=== PATIENT | female | born 1985 | race Caucasian/White ===

== ENCOUNTER 2017-08-08 14:08 | Inpatient (IN) | payer OTHER ==
[2017-08-08] MEDS ORDERED: Sodium Chloride 0.9% 1,000 ML IV ONE (15:47)
[2017-08-08] MEDS ORDERED: Sodium Chloride 0.9% 1,000 ML ONE (16:04)
[2017-08-08 16:19] LABS: BASO # 0.1 K/uL (0.0-0.2); BASO % 0.7 % (0.0-2.0); EOS # 0.1 K/uL (0.0-0.7); EOS % 0.6 % (0.0-4.0); HEMOGLOBIN 12.9 g/dL (11.0-16.0); LYMPH # 2.1 K/uL (1.0-4.3); LYMPH % 19.7 % (20.0-40.0); MEAN CELL VOLUME 84.4 fL (81.0-99.0); MEAN CORPUSCULAR HEMOGLOBIN 27.8 pg (27.0-31.0); MEAN CORPUSCULAR HGB CONC 32.9 g/dL (33.0-37.0); MEAN PLATELET VOLUME 8.6 fL (7.2-11.7); MONO # 0.6 K/uL (0.0-0.8); MONO % 5.5 % (0.0-10.0); NEUT # 7.8 K/uL (1.8-7.0); NEUT % 73.5 % (50.0-75.0); RBC 4.63 Mil/uL (3.80-5.20); RED CELL DISTRIBUTION WIDTH 13.5 % (11.5-14.5); WHITE BLOOD COUNT 10.6 K/uL (4.8-10.8)
--- NOTE | 2017-08-08 16:27 | C.PDOC ---
History Of Present Illness 32 y/o female c/o pain and mass to buttock x 6 days. Pt notes she was evaluated by Dr Rivera and instructed to follow up ED . Pt denies having similar abscess in the past, denies drainage, fever, or any other complaints at this time. Time Seen by Provider: 08/08/17 15:45 Chief Complaint (Nursing): Medical Clearance History Per: Patient History/Exam Limitations: no limitations Onset/Duration Of Symptoms: Days (6) Current Symptoms Are (Timing): Still Present Reports Recently: Treated By A Physician Recent travel outside of the [place]: No Additional History Per: Patient Past Medical History Reviewed: Historical Data, Nursing Documentation, Vital Signs Vital Signs: Last Vital Signs Temp 98.3 F 08/08/17 16:39 Pulse 90 08/08/17 16:39 Resp 16 08/08/17 16:39 BP 126/84 08/08/17 16:39 Pulse Ox 100 08/08/17 16:39 Family History: States: Unknown Family Hx - Social History Hx Alcohol Use: No Hx Substance Use: No - Immunization History Hx Tetanus Toxoid Vaccination: No Hx Influenza Vaccination: No Hx Pneumococcal Vaccination: No Review Of Systems Except As Marked, All Systems Reviewed And Found Negative. Constitutional: Negative for: Fever, Chills Cardiovascular: Negative for: Chest Pain Respiratory: Negative for: Shortness of Breath Gastrointestinal: Positive for: Rectal Pain (perirectal abscess). Negative for : Nausea, Vomiting, Abdominal Pain Physical Exam - Physical Exam Appears: Non-toxic, No Acute Distress Skin: Warm, Dry Head: Atraumatic, Normacephalic Eye(s): bilateral: Normal Inspection, EOMI Nose: Normal Oral Mucosa: Moist Neck: Normal ROM, Supple Chest: Symmetrical Cardiovascular: Rhythm Regular Respiratory: Normal Breath Sounds, No Accessory Muscle Use Gastrointestinal/Abdominal: Soft, No Tenderness Rectal: Tenderness (2cm area of tenderness, erythema, and central fluctuance to the left inferior buttock) Extremity: Normal ROM Neurological/Psych: Oriented x3, Normal Speech ED Course And Treatment - Laboratory Results Result Diagrams: 08/08/17 16:17 08/08/17 16:17 O2 Sat by Pulse Oximetry: 100 (RA) Pulse Ox Interpretation: Normal Progress Note: Blood work, UA ordered and reviewed. Patient was given IV fluids. case discussed with DR Rivera, agreed upon admission. Disposition - Disposition Disposition: HOSPITALIZED Disposition Time: 16:30 Condition: STABLE - Clinical Impression Clinical Impression: Gluteal abscess - PA / ACADEMIC SUPPORT DIRECTOR / Resident Statement MD/DO has reviewed & agrees with the documentation as recorded. - Scribe Statement The provider has reviewed the documentation as recorded by the Katelinibbrock Sharma All medical record entries made by the Jeremias were at my direction and personally dictated by me. I have reviewed the chart and agree that the record accurately reflects my personal performance of the history, physical exam, medical decision making, and the department course for this patient. I have also personally directed, reviewed, and agree with the discharge instructions and disposition.
[2017-08-08 16:31] LABS: ALB/GLOB RATIO 1.5 (1.0-2.1); ALBUMIN 4.7 g/dL (3.5-5.0); ALT/SGPT 48 U/L (9-52); AST/SGOT 22 U/L (14-36); BLOOD UREA NITROGEN 10 mg/dL (7-17); CALCIUM 8.9 mg/dl (8.6-10.4); GFR AFRICAN-AMERICAN > 60; GFR NON-AFRICAN AMERICAN > 60; PROTHROMBIN TIME 11.4 SECONDS (9.7-12.2)
[2017-08-08 16:31] LABS: HCG,QUALITATIVE URINE NEGATIVE (NEGATIVE)
[2017-08-08 16:37] LABS: SQUAMOUS EPITHIAL 3 /hpf (0-5); URINE BACTERIA OCC (<OCC); URINE BILIRUBIN NEGATIVE (NEGATIVE); URINE BLOOD 1+ (NEGATIVE); URINE CLARITY Clear (Clear); URINE COLOR Yellow (YELLOW); URINE GLUCOSE (UA) NORMAL (Normal); URINE LEUKOCYTE ESTERASE 1+ Leu/uL (Negative); URINE NITRATE NEGATIVE (NEGATIVE); URINE PROTEIN NEGATIVE (NEGATIVE); URINE UROBILINOGEN NORMAL mg/dL (0.2-1.0)
[2017-08-08] MEDS ORDERED: Midazolam 2 MG/2 ML VIAL ONE (17:11)
[2017-08-08] MEDS ORDERED: Propofol 10 mg/ml Inj (20 ML) ONE ×2 (17:12)
[2017-08-08] MEDS ORDERED: Lactated Ringer's 1,000 ML IV ONE (17:15)
[2017-08-08] MEDS ORDERED: Lidocaine Hydrochloride 5 ML INJ ONE (17:17)
[2017-08-08] MEDS ORDERED: ceFAZolin IV 1 gm in Dextrose 1 GM/50 ML BAG IVPB ONE (17:20)
[2017-08-08] MEDS ORDERED: Bupivacaine HCl 0.25% PF (10 ml) Inj ONE (17:20)
[2017-08-08] MEDS ORDERED: HYDROmorphone 0.5 mg/0.5 ml ISec IVP PRN (17:51)
[2017-08-08] MEDS ORDERED: Enoxaparin 30 mg Syringe SC SCH (22:00)
[2017-08-08] MEDS: Dextrose 5%/0.45% NS 1,000 ML IV SCH (22:06)
--- NOTE | 2017-08-08 23:19 | OP ---
PROCEDURE DATE: 08/08/2017 PREOPERATIVE DIAGNOSIS: Rectal abscess. 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 PROCEDURE PERFORMED: Incision and drainage of complex rectal and pelvic abscess with fistulotomy. SURGEON: Montana Rivera MD TYPE OF ANESTHESIA: General. ESTIMATED BLOOD LOSS: 75 mL. POSTOPERATIVE CONDITION: Stable. INDICATIONS FOR SURGERY: This is a 32-year-old female who presents with a history of rectal abscess x1 week. It is being increasing in size, becoming more painful. She is referred by a primary care doctor to me today and was admitted to the Emergency Room for urgent drainage. GROSS FINDINGS: There was a rectal abscess with a 4 o'clock level, approximately 5 cm from the anus. Upon draining the abscess, a probe was easily passed into the posterior midline of the anal canal consistent with Goodsall's rule. There were no other abnormal findings. DESCRIPTION OF PROCEDURE: The patient was taken to the operating room, general sedation was administered. The patient was placed in lithotomy position. The rectal area was prepped and draped. The rectal abscess was unroofed using the Bovie and pus was drained and cultured. Bleeding was controlled using the Bovie. A rectal probe was passed easily into the posterior midline and the anus. The overlying tissue was divided using the Bovie. There was vigorous bleeding noted and controlled using Bovie, and exposed redundant blood vessel was repaired. Wound was irrigated with copious amounts of saline solution. Partial tissue transfer closure was performed and the central portion was packed open with wet saline bolus. The patient tolerated the procedure well. Returned to recovery room in stable condition. Montana Rivera MD
[2017-08-09] MEDS: ceFAZolin IV 1 gm in Dextrose 1 GM/50 ML BAG IVPB SCH ×3 (01:36→17:32)
--- NOTE | 2017-08-09 01:46 | CP.PCM.CON ---
<Samara SheikhBernabe - Last Filed: 08/09/17 01:40> History of Present Illness - History of Present Illness History of Present Illness: CC: rectal abscess Medicine Consult Note HPI: Patient is a 32 y/o F with no significant pmhx who had been having L buttock pain for about 1 week and noticed she had an abscess which she said started small. Patient was having increasing pain and went to PMD: Dr. Chencho Sharma who told her to go to the ED. Patient had also told PMD that she was having some burning and increased frequency with urination for about 2 weeks. Patient had an incision and drainage of complex rectal and pelvic abscess with fistulotomy by Dr. Rivera performed today. Patient seen after the procedure and was very tired from the anesthesia. Patient said her pain was low, about 2/ 10. Patient said she had no chest pain, nausea, vomiting, or abdominal pain. When asked about her urinary symptoms patient said she did not notice any blood or change in color of the urine. PMD: Dr. Chencho Sharma PMHx: none Psurg: none Famhx: mom- high bp, DM, CAD father: HTN SocialHx: denies tobacco, alcohol, drugs Home meds: none Review of Systems - Constitutional Constitutional: Fatigue. absent: Chills, Fever - Cardiovascular Cardiovascular: absent: Chest Pain, Dyspnea, Edema, Palpitations, Pedal Edema - Respiratory Respiratory: absent: Cough, Dyspnea, Wheezing, Stridor - Gastrointestinal Gastrointestinal: absent: Abdominal Pain, Constipation, Diarrhea, Nausea, Vomiting - Genitourinary Genitourinary: Dysuria, Voiding Freq/Small Amts Additional comments: left buttock abscess and pain - Musculoskeletal Musculoskeletal: absent: Numbness, Tingling - Integumentary Additional comments: left buttock abscess - Psychiatric Psychiatric: absent: Confusion - Hematologic/Lymphatic Hematologic: absent: Easy Bleeding, Easy Bruising Past Patient History - Past Medical History & Family History Past Medical History?: No - Past Social History Smoking Status: Never Smoked - MUSCULOSKELETAL/RHEUMATOLOGICAL Hx Falls: No - PSYCHIATRIC Hx Substance Use: No - SURGICAL HISTORY Hx Surgeries: No - ANESTHESIA Hx Anesthesia: No Meds Allergies/Adverse Reactions: Allergies Allergy/AdvReac Type Severity Reaction Status Date / Time No Known Allergies Allergy Verified 08/08/17 14:44 - Medications Medications: Current Medications Docusate Sodium (Colace) 100 mg PO BID [facility] Last Admin: 08/08/17 21:57 Dose: 100 mg Enoxaparin Sodium (Lovenox) 30 mg SC 1000,2200 [facility] Famotidine (Pepcid) 20 mg IVP DAILY [facility] Sodium Chloride (Sodium Chloride 0.9%) 1,000 mls @ 100 mls/hr IV .Q10H ONE Stop: 08/09/17 01:46 Last Admin: 08/08/17 16:16 Dose: 100 mls/hr Dextrose/Sodium Chloride (Dextrose 5%/0.45% Ns 1000 Ml) 1,000 mls @ 80 mls/hr IV .[id number] [facility] Last Admin: 08/08/17 22:06 Dose: 80 mls/hr Cefazolin Sodium/Dextrose (Ancef Iv 1 Gm Duplex) 1 gm in 50 mls @ 100 mls/hr IVPB Q8H [facility] Ketorolac Tromethamine (Toradol) 30 mg IV Q6 PRN PRN Reason: pain 8-10 Stop: 08/13/17 18:01 Meperidine HCl (Demerol) 12.5 mg IVP Q5M PRN PRN Reason: Shivering/Rigor Last Admin: 08/08/17 18:18 Dose: 12.5 mg Ondansetron HCl (Zofran Inj) 4 mg IVP ONCE PRN PRN Reason: Nausea/Vomiting Last Admin: 08/08/17 22:00 Dose: 4 mg Oxycodone/Acetaminophen (Percocet 5/325 Mg Tab) 2 tab PO Q4 PRN PRN Reason: pain Stop: 08/11/17 18:01 Pneumococcal Polyvalent Vaccine (Pneumovax 23 Vaccine) 0.5 ml IM .ONCE ONE Stop: 08/10/17 10:01 Physical Exam - Constitutional Appears: Non-toxic, No Acute Distress - Head Exam Head Exam: ATRAUMATIC, NORMAL INSPECTION, NORMOCEPHALIC - Eye Exam Eye Exam: EOMI, Normal appearance - ENT Exam ENT Exam: Mucous Membranes Moist - Respiratory Exam Respiratory Exam: Clear to Auscultation Bilateral, NORMAL BREATHING PATTERN. absent: Rales, Rhonchi, Wheezes, Respiratory Distress, Stridor - Cardiovascular Exam Cardiovascular Exam: REGULAR RHYTHM, RRR, +S1, +S2 - GI/Abdominal Exam GI & Abdominal Exam: Normal Bowel Sounds, Soft. absent: Tenderness - Extremities Exam Extremities exam: Positive for: normal inspection. Negative for: tenderness - Neurological Exam Neurological exam: Alert, Oriented x3 - Psychiatric Exam Psychiatric exam: Normal Affect, Normal Mood - Skin Skin Exam: Intact, Normal Color, Warm Additional comments: buttock dressing c/d/i Results - Vital Signs Recent Vital Signs: Last Vital Signs Temp 97 F L 08/08/17 20:30 Pulse 84 08/08/17 20:30 Resp 16 08/08/17 20:30 BP 111/75 08/08/17 20:30 Pulse Ox 100 08/08/17 20:30 - Labs Result Diagrams: 08/08/17 16:17 08/08/17 16:17 Labs: Laboratory Results - last 24 hr 08/08/17 08/08/17 08/08/17 16:17 16:17 16:17 WBC 10.6 RBC 4.63 Hgb 12.9 Hct 39.1 MCV 84.4 MCH 27.8 MCHC 32.9 L RDW 13.5 Plt Count 334 MPV 8.6 Neut % (Auto) 73.5 Lymph % (Auto) 19.7 L Frontier % (Auto) 5.5 Eos % (Auto) 0.6 Baso % (Auto) 0.7 Neut # 7.8 H Lymph # 2.1 Frontier # 0.6 Eos # 0.1 Baso # 0.1 PT 11.4 INR 1.0 APTT 33 Sodium 134 Potassium 3.6 Chloride 98 Carbon Dioxide 20 L Anion Gap 20 BUN 10 Creatinine 0.5 L Est GFR ( Amer) > 60 Est GFR (Non-Af Amer) > 60 Random Glucose 85 Calcium 8.9 Total Bilirubin 1.0 AST 22 ALT 48 Alkaline Phosphatase 65 Total Protein 7.8 Albumin 4.7 Globulin 3.1 Albumin/Globulin Ratio 1.5 Urine Color Urine Clarity Urine pH Ur Specific [place] Urine Protein Urine Glucose (UA) Urine Ketones Urine Blood Urine Nitrate Urine Bilirubin Urine Urobilinogen Ur Leukocyte Esterase Urine WBC (Auto) Urine RBC (Auto) Ur Squamous Epith Cells Urine Bacteria Urine HCG, Qual 08/08/17 16:25 WBC RBC Hgb Hct MCV MCH MCHC RDW Plt Count MPV Neut % (Auto) Lymph % (Auto) Frontier % (Auto) Eos % (Auto) Baso % (Auto) Neut # Lymph # Frontier # Eos # Baso # PT INR APTT Sodium Potassium Chloride Carbon Dioxide Anion Gap BUN Creatinine Est GFR ( Amer) Est GFR (Non-Af Amer) Random Glucose Calcium Total Bilirubin AST ALT Alkaline Phosphatase Total Protein Albumin Globulin Albumin/Globulin Ratio Urine Color Yellow Urine Clarity Clear Urine pH 5.0 Ur Specific [place] 1.016 Urine Protein Negative Urine Glucose (UA) Normal Urine Ketones 1+ H Urine Blood 1+ H Urine Nitrate Negative Urine Bilirubin Negative Urine Urobilinogen Normal Ur Leukocyte Esterase 1+ H Urine WBC (Auto) 13 H Urine RBC (Auto) 8 H Ur Squamous Epith Cells 3 Urine Bacteria Occ H Urine HCG, Qual Negative Assessment & Plan - Assessment and Plan (Free Text) Assessment: I&D of complex rectal and pelvic abscess with fistulotomy, POD#0 Cefazolin 1 gm q8h Toradol prn Oxycodone/ acetaminophen prn NS @ 100cc/hr continue recommendations as per surgeon, Dr. Rivera R/O UTI repeat UA and Urine culture Prophylaxis DVT: Lovenox 30mg sc bid GI: Pepcid 20mg ivp daily Zofran prn <Leo Francisco P - Last Filed: 08/12/17 07:08> Results - Vital Signs Recent Vital Signs: Last Vital Signs Temp 98.9 F 08/11/17 15:00 Pulse 95 H 08/11/17 15:00 Resp 20 08/11/17 15:00 BP 104/71 08/11/17 15:00 Pulse Ox 96 08/11/17 15:00 - Labs Result Diagrams: 08/10/17 13:08 08/09/17 06:55 Attending/Attestation - Attestation I have personally seen and examined this patient.: Yes I have fully participated in the care of the patient.: Yes I have reviewed all pertinent clinical information: Yes Notes (Text): Evaluated patient for request of medicine consult patient admitted under surgery , with presentation of gluteal swelling on the left side, started as pimple, then in few days started to drain with swelling. Patient was seen post op, hence pre-op finding were not known. As per her 1 st episode and not other pmh, wbc in urine noticed but no significant urinary symptoms. Upon Exam rest fine in the perineum she had incision in the left gluteal/perinal area which was packed with gauze, no surrounding edema/induration.
[2017-08-09] MEDS: Dextrose 5%/0.45% NS 1,000 ML IV SCH ×2 (06:30→17:32)
[2017-08-09 07:22] LABS: BASO % 0.5 % (0.0-2.0); EOS # 0.1 K/uL (0.0-0.7); EOS % 1.3 % (0.0-4.0); HEMOGLOBIN 11.6 g/dL (11.0-16.0); MEAN CELL VOLUME 84.1 fL (81.0-99.0); MEAN CORPUSCULAR HGB CONC 33.3 g/dL (33.0-37.0); MEAN PLATELET VOLUME 8.8 fL (7.2-11.7); MONO # 0.8 K/uL (0.0-0.8); MONO % 10.4 % (0.0-10.0); NEUT # 4.5 K/uL (1.8-7.0); NEUT % 60.8 % (50.0-75.0); RBC 4.13 Mil/uL (3.80-5.20); RED CELL DISTRIBUTION WIDTH 13.1 % (11.5-14.5); WHITE BLOOD COUNT 7.4 K/uL (4.8-10.8)
[2017-08-09 07:34] LABS: BLOOD UREA NITROGEN 8 mg/dL (7-17); GFR AFRICAN-AMERICAN > 60; GFR NON-AFRICAN AMERICAN > 60
--- NOTE | 2017-08-09 08:38 | CP.PCM.PN ---
<YasmineChikis - Last Filed: 08/09/17 19:14> Subjective - Date & Time of Evaluation Date of Evaluation: 08/09/17 Time of Evaluation: 08:35 - Subjective Subjective: Progress note for Dr. Garza Patient seen and examined at bedside. Patient tolerating pain well. Patient denies Fever, chills, nausea, vomiting, abdominal pain. Patient notes some tenderness at surgical site. Dressings to be changed by nursing staff. No acute events overnight. Patient admits to burning sensation with increased frequency of urination. Patient states she's had it in the past before and it went away. Patient was asked about her bathroom hygiene technique and was instructed to wipe from front to back and with sexual activity, void immediately afterwards). Patient told she will have a culture for urine, antibiotics for urine and medication for the burning sensation which has the side effect of color change of urine ( to be given for two days). Objective - Vital Signs/Intake and Output Vital Signs (last 24 hours): Temp Pulse Resp BP Pulse Ox 97.1 F L 86 20 118/75 96 08/09/17 07:41 08/09/17 07:41 08/09/17 07:41 08/09/17 07:41 08/09/17 07:41 Intake and Output: 08/09/17 08/09/17 06:59 18:59 Intake Total 640 Output Total 100 Balance 540 - Medications Medications: Current Medications Docusate Sodium (Colace) 100 mg PO BID [facility] Last Admin: 08/08/17 21:57 Dose: 100 mg Enoxaparin Sodium (Lovenox) 30 mg SC 1000,2200 [facility] Famotidine (Pepcid) 20 mg IVP DAILY [facility] Dextrose/Sodium Chloride (Dextrose 5%/0.45% Ns 1000 Ml) 1,000 mls @ 80 mls/hr IV .[id number] [facility] Last Admin: 08/09/17 06:30 Dose: Not Given Cefazolin Sodium/Dextrose (Ancef Iv 1 Gm Duplex) 1 gm in 50 mls @ 100 mls/hr IVPB Q8H [facility] Last Admin: 08/09/17 08:34 Dose: 100 mls/hr Ketorolac Tromethamine (Toradol) 30 mg IV Q6 PRN PRN Reason: pain 8-10 Stop: 12/03/17 18:01 Ondansetron HCl (Zofran Inj) 4 mg IVP ONCE PRN PRN Reason: Nausea/Vomiting Last Admin: 08/08/17 22:00 Dose: 4 mg Oxycodone/Acetaminophen (Percocet 5/325 Mg Tab) 2 tab PO Q4 PRN PRN Reason: pain Stop: 08/11/17 18:01 Pneumococcal Polyvalent Vaccine (Pneumovax 23 Vaccine) 0.5 ml IM .ONCE ONE Stop: 08/10/17 10:01 - Labs Labs: 08/09/17 06:55 08/09/17 06:55 PT 11.4 SECONDS (9.7-12.2) 08/08/17 16: INR 1.0 08/08/17 16:17 APTT 33 SECONDS (21-34) 08/08/17 16:17 - Constitutional Appears: Non-toxic - Head Exam Head Exam: NORMAL INSPECTION - Eye Exam Eye Exam: EOMI, Normal appearance - ENT Exam ENT Exam: Mucous Membranes Moist - Neck Exam Neck Exam: Full ROM - Respiratory Exam Respiratory Exam: Clear to Ausculation Bilateral, NORMAL BREATHING PATTERN. absent: Accessory Muscle Use - Cardiovascular Exam Cardiovascular Exam: REGULAR RHYTHM, +S1, +S2 - GI/Abdominal Exam GI & Abdominal Exam: Soft. absent: Tenderness - Extremities Exam Extremities Exam: Full ROM. absent: Pedal Edema - Neurological Exam Neurological Exam: Alert, Awake - Psychiatric Exam Psychiatric exam: Normal Mood - Skin Skin Exam: Dry, Normal Color Additional comments: dressings c/d/i and left gluteal region no signs of erythema, induration, drainage Assessment and Plan - Assessment and Plan (Free Text) Assessment: 32 F with rectal and pelvic abscess with fistula s/p incision and drainage with fistulotomy POD#1 Rectal and pelvic abscess with fistula s/p incision and drainage with fistulotomy POD#1 Diet: NPO cefazolin 1gm D5W f/u wound culture UTI 08/08 UA positive proper bathroom hygiene technique instructed (wipe from front to back and with sexual activity, void immediately afterwards) f/u urine culture 08/09 250mg BID cipro for 7 days Pyridium 200mg BID for 2 days for symptomatic treatment, patient warned of urine color change, which is normal for this medication f/u CBC Prophylaxis Lovenox 30mg SC @ 10:00 and 22:00 Pepcid 20 mg IVP QD Pain: Toradol 30mg IV Q6H PRN Colace 100mg POBID Nausea: Zofran IV fluids: D5W 1/2 NS @80cc/hr discussed with Dr. Kayla Underwood DO PGY1 <Giovani Garza H - Last Filed: 08/10/17 07:45> Objective - Vital Signs/Intake and Output Vital Signs (last 24 hours): Temp Pulse Resp BP Pulse Ox 98.4 F 71 20 101/60 97 08/09/17 23:49 08/09/17 23:49 08/09/17 23:49 08/09/17 23:49 08/09/17 23:49 Intake and Output: 08/10/17 08/10/17 06:59 18:59 Intake Total 640 Balance 640 - Medications Medications: Current Medications Ciprofloxacin (Cipro) 250 mg PO BID [facility] Stop: 08/16/17 23:59 Last Admin: 08/09/17 17:33 Dose: 250 mg Docusate Sodium (Colace) 100 mg PO BID [facility] Last Admin: 08/09/17 17:33 Dose: 100 mg Enoxaparin Sodium (Lovenox) 30 mg SC 1000,2200 [facility] Famotidine (Pepcid) 20 mg IVP DAILY [facility] Last Admin: 08/09/17 09:29 Dose: 20 mg Dextrose/Sodium Chloride (Dextrose 5%/0.45% Ns 1000 Ml) 1,000 mls @ 80 mls/hr IV .[id number] [facility] Last Admin: 08/09/17 17:32 Dose: 80 mls/hr Cefazolin Sodium/Dextrose (Ancef Iv 1 Gm Duplex) 1 gm in 50 mls @ 100 mls/hr IVPB Q8H [facility] Last Admin: 08/10/17 00:38 Dose: 100 mls/hr Ketorolac Tromethamine (Toradol) 30 mg IV Q6 PRN PRN Reason: pain 8-10 Stop: 08/13/17 18:01 Ondansetron HCl (Zofran Inj) 4 mg IVP ONCE PRN PRN Reason: Nausea/Vomiting Last Admin: 08/08/17 22:00 Dose: 4 mg Oxycodone/Acetaminophen (Percocet 5/325 Mg Tab) 2 tab PO Q4 PRN PRN Reason: pain Stop: 08/11/17 18:01 Last Admin: 08/09/17 22:43 Dose: 2 tab Phenazopyridine HCl (Pyridium) 200 mg PO BID BILL Stop: 08/10/17 18:01 Last Admin: 08/09/17 18:30 Dose: 200 mg Pneumococcal Polyvalent Vaccine (Pneumovax 23 Vaccine) 0.5 ml IM .ONCE ONE Stop: 08/10/17 10:01 - Labs Labs: 08/09/17 06:55 08/09/17 06:55 PT 11.4 SECONDS (9.7-12.2) 08/08/17 16:17 INR 1.0 08/08/17 16:17 APTT 33 SECONDS (21-34) 08/08/17 16:17 Attending/Attestation - Attestation I have personally seen and examined this patient.: Yes I have fully participated in the care of the patient.: Yes I have reviewed all pertinent clinical information, including history, physical exam and plan: Yes Notes (Text): Medical Consult: Patient was seen and examined by me as well. Agree with the above note by the resident. Cipro has been started however we will repeat the UA and if the repeat is ok then probably will stop the Cipro. The patient was not in any acute distress when we came and examined her. She reported the pain was controlled with the percocet and toradol regimen that she is on. Denied fever or chills when we saw her. She had already been to the operating room. According to the surgical report, there was found a complex rectal and pelvic abscess with fistulotomy. Giovani Garza
[2017-08-09] MEDS ORDERED: Enoxaparin 30 mg Syringe SC SCH (10:00)
[2017-08-09] MEDS ORDERED: cefTRIAXone IV 1 gm in Dextros 50 ML IVPB SCH (10:00)
[2017-08-09] MEDS ORDERED: Midazolam 2 MG/2 ML VIAL ONE (12:20)
[2017-08-09] MEDS ORDERED: Propofol 10 mg/ml Inj (20 ML) ONE (12:20)
[2017-08-09] MEDS ORDERED: Lactated Ringer's 1,000 ML IV ONE ×3 (12:49→15:55)
[2017-08-09 13:06] LABS: HCG,QUALITATIVE URINE NEGATIVE (NEGATIVE)
[2017-08-09 13:14] LABS: URINE BILIRUBIN NEGATIVE (NEGATIVE); URINE BLOOD 1+ (NEGATIVE); URINE CLARITY Clear (Clear); URINE COLOR Colorless (YELLOW); URINE GLUCOSE (UA) NORMAL (Normal); URINE LEUKOCYTE ESTERASE NEG Leu/uL (Negative); URINE NITRATE NEGATIVE (NEGATIVE); URINE PROTEIN NEGATIVE (NEGATIVE); URINE UROBILINOGEN NORMAL mg/dL (0.2-1.0)
[2017-08-09] MEDS ORDERED: HYDROmorphone 0.5 mg/0.5 ml ISec IVP PRN (14:59)
[2017-08-09] MEDS ORDERED: Lactated Ringer's 1,000 ML IV SCH (15:00)
[2017-08-09] MEDS: Oxycodone/Acetaminophen 5/325 mg Tab PO PRN (22:43)
[2017-08-10] MEDS: ceFAZolin IV 1 gm in Dextrose 1 GM/50 ML BAG IVPB SCH ×3 (00:38→18:19)
--- NOTE | 2017-08-10 01:51 | OP ---
PROCEDURE DATE: 08/09/2017 PREOPERATIVE DIAGNOSES: Rectal and pelvic abscess with fistula. POSTOPERATIVE DIAGNOSES: Rectal and pelvic abscess with fistula. PROCEDURE PERFORMED: Redrainage of rectal and pelvic abscess with debridement, partial closure of fistula. SURGEON: Montana Rivera MD TYPE OF ANESTHESIA: General. ESTIMATED BLOOD LOSS: 40 mL. POSTOPERATIVE CONDITION: Stable. INDICATIONS FOR SURGERY: A 32-year-old male who had an extensive complex fistula, rectal and pelvic abscess drained yesterday. He was taken back to the OR for change of packing under anesthesia and re-debridement of the wound. PROCEDURE IN DETAIL: The patient was taken to the operating room, general anesthesia was administered and placed in lithotomy position, the packing was removed and medially was bleeding. The wound was quickly prepped and draped and a pudendal vessel was repaired. The wound was then pulse irrigated with saline and Kantrex solution and debrided and any remaining collections were drained and cultured. A partial tissue flap closure was performed and the central portion was packed open with wet saline gauze. The patient tolerated the procedure well. Returned to recovery room in stable condition. Montana Rivera MD
[2017-08-10 07:39] LABS: HCG,QUALITATIVE URINE NEGATIVE (NEGATIVE)
[2017-08-10 07:45] LABS: SQUAMOUS EPITHIAL 1 /hpf (0-5); URINE BILIRUBIN NEGATIVE (NEGATIVE); URINE BLOOD 1+ (NEGATIVE); URINE CLARITY Clear (Clear); URINE COLOR Amber (YELLOW); URINE GLUCOSE (UA) NORMAL (Normal); URINE LEUKOCYTE ESTERASE NEG Leu/uL (Negative); URINE NITRATE POSITIVE (NEGATIVE); URINE PROTEIN NEGATIVE (NEGATIVE)
--- NOTE | 2017-08-10 09:43 | CP.PCM.PN ---
<Chikis Underwood - Last Filed: 08/10/17 11:47> Subjective - Date & Time of Evaluation Date of Evaluation: 08/10/17 Time of Evaluation: 09:36 - Subjective Subjective: Progress note for Dr. Garza Patient seen and examined at bedside. Patient appears groggy in the morning. Patient states this is the first time she's ever had drainage from her left buttock. Patient denies infection in the past in left buttock. Patient states the burning sensation with urination is gone and feels better after antibiotic treatment for urinary tract infection. Patient denies fever, chills, nausea vomiting, abdominal pain. Patient admits to soreness in area of incision and drainage. Objective - Vital Signs/Intake and Output Vital Signs (last 24 hours): Temp Pulse Resp BP Pulse Ox 98.3 F 72 20 118/80 98 08/10/17 08:00 08/10/17 08:00 08/10/17 08:00 08/10/17 08:00 08/10/17 08:00 Intake and Output: 08/10/17 08/10/17 06:59 18:59 Intake Total 640 Balance 640 - Medications Medications: Current Medications Ciprofloxacin (Cipro) 250 mg PO BID [facility] Stop: 08/16/17 23:59 Last Admin: 08/09/17 17:33 Dose: 250 mg Docusate Sodium (Colace) 100 mg PO BID [facility] Last Admin: 08/09/17 17:33 Dose: 100 mg Enoxaparin Sodium (Lovenox) 30 mg SC 1000,2200 [facility] Famotidine (Pepcid) 20 mg IVP DAILY [facility] Last Admin: 08/09/17 09:29 Dose: 20 mg Dextrose/Sodium Chloride (Dextrose 5%/0.45% Ns 1000 Ml) 1,000 mls @ 80 mls/hr IV .[id number] [facility] Last Admin: 08/09/17 17:32 Dose: 80 mls/hr Cefazolin Sodium/Dextrose (Ancef Iv 1 Gm Duplex) 1 gm in 50 mls @ 100 mls/hr IVPB Q8H [facility] Last Admin: 08/10/17 00:38 Dose: 100 mls/hr Ketorolac Tromethamine (Toradol) 30 mg IV Q6 PRN PRN Reason: pain 8-10 Stop: 08/13/17 18:01 Ondansetron HCl (Zofran Inj) 4 mg IVP ONCE PRN PRN Reason: Nausea/Vomiting Last Admin: 08/08/17 22:00 Dose: 4 mg Oxycodone/Acetaminophen (Percocet 5/325 Mg Tab) 2 tab PO Q4 PRN PRN Reason: pain Stop: 08/11/17 18:01 Last Admin: 08/09/17 22:43 Dose: 2 tab Phenazopyridine HCl (Pyridium) 200 mg PO BID BILL Stop: 08/10/17 18:01 Last Admin: 08/09/17 18:30 Dose: 200 mg Pneumococcal Polyvalent Vaccine (Pneumovax 23 Vaccine) 0.5 ml IM .ONCE ONE Stop: 08/10/17 10:01 - Labs Labs: 08/09/17 06:55 08/09/17 06:55 PT 11.4 SECONDS (9.7-12.2) 08/08/17 16:17 INR 1.0 08/08/17 16:17 APTT 33 SECONDS (21-34) 08/08/17 16:17 - Constitutional Appears: Non-toxic, No Acute Distress - Head Exam Head Exam: NORMAL INSPECTION - Eye Exam Eye Exam: EOMI, Normal appearance - ENT Exam ENT Exam: Mucous Membranes Moist - Neck Exam Neck Exam: Full ROM - Respiratory Exam Respiratory Exam: absent: Accessory Muscle Use - Cardiovascular Exam Cardiovascular Exam: REGULAR RHYTHM, +S1, +S2 - GI/Abdominal Exam GI & Abdominal Exam: Soft. absent: Tenderness - Extremities Exam Extremities Exam: Full ROM. absent: Pedal Edema - Neurological Exam Neurological Exam: Awake - Psychiatric Exam Psychiatric exam: Normal Affect, Normal Mood - Skin Skin Exam: Dry, Intact Additional comments: patient seen and examined at bedside. 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 Rivera f/u wound culture Pain: Percocet 5/325mg 2tab Q4H prn pain Colace 100mg POBID Nausea: Zofran Diet: NPO cefazolin 1gm D5W UTI 08/08 16:25 UA urine ketones 1+ urine blood 1+, urine nitrate negative, urine leukocyte esterase 1+, urine bacteria occult 08/09 12:36 UA colorless, ph 6.0, urine blood 1+, urine bilirubin negative, urine nitrate negative, urine leukocyte esterase negative. 08/10 07:08 UA ph 6.0 positive for nitrate, urine urobilinogen 4.0, Urine blood +, uriUAne ketones negative, Urine RBC 2 proper bathroom hygiene technique instructed (wipe from front to back and with sexual activity, void immediately afterwards) f/u urine culture 08/09 250mg BID cipro for 7 days 08/09 Pyridium 200mg BID for 2 days for symptomatic treatment, patient warned of urine color change, which is normal for this medication f/u CBC Vitals Stable. Tmax no fever over 24 hours Prophylaxis Lovenox 30mg SC @ 10:00 and 22:00 Pepcid 20 mg IVP QD IV fluids: D5W 09/12 NS @80cc/hr disposition: no further medical management needed at this time. Please re- consult if medical management is needed. Patient is currently medically stable and responding well to antibiotics for the UTI, patient denies dysuria, burning sensation and hematuria discussed with Dr. Kayla Underwood, DO PGY1 <Giovani Garza - Last Filed: 08/10/17 15:32> Objective - Vital Signs/Intake and Output Vital Signs (last 24 hours): Temp Pulse Resp BP Pulse Ox 98.3 F 72 20 118/80 98 08/10/17 08:00 08/10/17 08:00 08/10/17 08:00 08/10/17 08:00 08/10/17 08:00 Intake and Output: 08/10/17 08/10/17 06:59 18:59 Intake Total 640 Balance 640 - Medications Medications: Current Medications Ciprofloxacin (Cipro) 250 mg PO BID [facility] Stop: 08/16/17 23:59 Last Admin: 08/10/17 10:19 Dose: Not Given Docusate Sodium (Colace) 100 mg PO BID [facility] Last Admin: 08/10/17 10:19 Dose: Not Given Enoxaparin Sodium (Lovenox) 30 mg SC 1000,2200 [facility] Famotidine (Pepcid) 20 mg IVP DAILY [facility] Last Admin: 08/10/17 10:18 Dose: 20 mg Dextrose/Sodium Chloride (Dextrose 5%/0.45% Ns 1000 Ml) 1,000 mls @ 80 mls/hr IV .[id number] [facility] Last Admin: 08/10/17 10:19 Dose: 80 mls/hr Cefazolin Sodium/Dextrose (Ancef Iv 1 Gm Duplex) 1 gm in 50 mls @ 100 mls/hr IVPB Q8H [facility] Last Admin: 08/10/17 10:17 Dose: 100 mls/hr Ketorolac Tromethamine (Toradol) 30 mg IV Q6 PRN PRN Reason: pain 8-10 Stop: 08/13/17 18:01 Ondansetron HCl (Zofran Inj) 4 mg IVP ONCE PRN PRN Reason: Nausea/Vomiting Last Admin: 08/08/17 22:00 Dose: 4 mg Oxycodone/Acetaminophen (Percocet 5/325 Mg Tab) 2 tab PO Q4 PRN PRN Reason: pain Stop: 08/11/17 18:01 Last Admin: 08/09/17 22:43 Dose: 2 tab Phenazopyridine HCl (Pyridium) 200 mg PO BID [facility] Stop: 08/10/17 18:01 Last Admin: 08/10/17 10:19 Dose: Not Given - Labs Labs: 08/10/17 13:08 08/09/17 06:55 PT 11.4 SECONDS (9.7-12.2) 08/08/17 16:17 INR 1.0 08/08/17 16:17 APTT 33 SECONDS (21-34) 08/08/17 16:17 Attending/Attestation - Attestation I have personally seen and examined this patient.: Yes I have fully participated in the care of the patient.: Yes I have reviewed all pertinent clinical information, including history, physical exam and plan: Yes Notes (Text): Medical attending: Patient was seen and examined by me, agrees the above note by medical pathology teacher. The patient did not have any acute concerns or complaints. She reported that the pain regimen that she is on right now is controlling her pain she denied having any nausea or vomiting. She also denied having any fevers or chills, and denied having any shortness of breath or chest pain, and denied having abdominal pain I also spoke with the patient's primary care physician and gave her an update on the patient's status A repeat UA was done, which looked much better than the first UA for now and continue with the by mouth Cipro Thank you very much, Giovain Garza
[2017-08-10] MEDS ORDERED: Influenza Vaccine 60 mcg/0.5 mL SYR (4YR UP) IM ONE (10:00)
[2017-08-10] MEDS ORDERED: Pneumococcal 23-Valent Vaccine IM ONE (10:00)
[2017-08-10] MEDS: Dextrose 5%/0.45% NS 1,000 ML IV SCH ×2 (10:19→20:00)
[2017-08-10 13:12] LABS: BASO # 0.1 K/uL (0.0-0.2); BASO % 0.7 % (0.0-2.0); EOS # 0.1 K/uL (0.0-0.7); HEMOGLOBIN 12.5 g/dL (11.0-16.0); LYMPH # 1.7 K/uL (1.0-4.3); LYMPH % 20.6 % (20.0-40.0); MEAN CELL VOLUME 84.4 fL (81.0-99.0); MEAN CORPUSCULAR HEMOGLOBIN 27.9 pg (27.0-31.0); MEAN PLATELET VOLUME 8.8 fL (7.2-11.7); MONO # 0.7 K/uL (0.0-0.8); MONO % 8.3 % (0.0-10.0); NEUT # 5.8 K/uL (1.8-7.0); NEUT % 69.4 % (50.0-75.0); RBC 4.48 Mil/uL (3.80-5.20); RED CELL DISTRIBUTION WIDTH 13.5 % (11.5-14.5); WHITE BLOOD COUNT 8.4 K/uL (4.8-10.8)
[2017-08-10] MEDS ORDERED: Lactated Ringer's 1,000 ML IV ONE ×2 (15:39)
[2017-08-10] MEDS ORDERED: Midazolam 2 MG/2 ML VIAL ONE (15:45)
[2017-08-10] MEDS ORDERED: Propofol 10 mg/ml Inj (20 ML) ONE (15:45)
[2017-08-10] MEDS ORDERED: Bacitracin Ointment 30 GM TUBE ONE (16:36)
[2017-08-10] MEDS: Oxycodone/Acetaminophen 5/325 mg Tab PO PRN (22:42)
[2017-08-10 23:51] VITALS: RESP 20
[2017-08-11] MEDS: ceFAZolin IV 1 gm in Dextrose 1 GM/50 ML BAG IVPB SCH ×2 (01:45→09:17)
[2017-08-11 02:16] VITALS: O2SAT 96
--- NOTE | 2017-08-11 08:11 | OP ---
PROCEDURE DATE: 08/10/2017 PREOPERATIVE DIAGNOSIS: Extensive rectal and pelvic abscess with fistula. 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 PROCEDURE PERFORMED: Removal of packing, debridement, re-drainage of abscess, and adjacent tissue transverse closure of wound. SURGEON: Montana Rivera MD TYPE OF ANESTHESIA: General. ESTIMATED BLOOD LOSS: 50 mL. POSTOPERATIVE CONDITION: Stable. DESCRIPTION OF PROCEDURE: The patient was taken to the operating room and general anesthesia was administered. She was placed on lithotomy position and the previous packing was removed. Rectal area was prepped and draped. The rectal and pelvic wounds were again aggressively debrided. The pelvic blood vessel was repaired and bleeding was controlled using Bovie. Wound was pulse irrigating with saline and solution and any remaining collections were drained and cultured. The transverse flaps using Bovie and adjacent tissue transverse closure was performed using multiple layers of Monocryl. The wounds were dressed sterilely. The patient tolerated the procedure well and transferred to recovery room in stable condition. Montana Rivera MD
[2017-08-11] MEDS: Dextrose 5%/0.45% NS 1,000 ML IV SCH (09:13)
[2017-08-11 16:59] VITALS: BP 104/71; PULSE 95; TEMP 98.9
== END 2017-08-11 16:45 | disposition home or self-care (01) | DRG 330 ==
LOC: C.ER 14:08 → C.SDS 15:48 → C.ER 16:44 → C.9S 18:04 → C.3T 21:07
PROVIDERS: ADMIT Surgery; ATTEND Surgery
PROC: 0DQP3ZZ Repair Rectum, Percutaneous Approach (ICD-10-PCS; 2017-08-08)
PROC: 0D9P7ZZ Drainage of Rectum, Via Natural or Artificial Opening (ICD-10-PCS; principal; 2017-08-08 19:15)
PROC: 0D9Q3ZZ Drainage of Anus, Percutaneous Approach (ICD-10-PCS; 2017-08-09)
PROC: 0D9P3ZZ Drainage of Rectum, Percutaneous Approach (ICD-10-PCS; 2017-08-09)
PROC: 0JQ Subcutaneous Tissue and Fascia, Repair (ICD-10-PCS; 2017-08-10)
DX: K61.1 Rectal abscess (principal); L02.31 Cutaneous abscess of buttock; K60.5 Anorectal fistula; N39.0 Urinary tract infection, site not specified; N73.9 Female pelvic inflammatory disease, unspecified; Z82.49 Family history of ischemic heart disease and other diseases of the circulatory system